=== PATIENT | female | born 1940 | race Caucasian/White ===

== ENCOUNTER 2019-04-17 21:14 | Emergency (ER) | payer MEDICARE ==
[~2019-04-17] VITALS: Ht 160 cm; Wt 57.9 kg
[2019-04-17 21:18] VITALS: BP 172/79
[2019-04-17] MEDS ORDERED: AZIT250T89 PO (21:28)
== END 2019-04-17 22:03 | disposition home or self-care (01) ==
LOC: ED 21:40
DX: K12.0 Recurrent oral aphthae (principal); L01.01 Non-bullous impetigo
CPT/HCPCS: 99283